=== PATIENT | male | born 1965 | race American Indian/Alaskan Native ===

== ENCOUNTER 2019-11-05 03:04 | Emergency (ER) | payer SELFPAY ==
[2019-11-05 07:26] VITALS: BP 122/88
--- NOTE | 2019-11-05 07:43 | Emergency Department Report ---
Chief Complaint: Extremity Injury, Lower Stated Complaint: FEET PAIN Time Seen by Provider: 11/05/19 07:30 - HPI History of Present Illness: 54-year-old -Prydeinig male presents to the emergency room for bilateral feet pain for several weeks. Patient reports that he was seen at another hospital and was prescribed gabapentin. Patient states today is progressively worse. Patient reports the pain is sharp and throbbing. Patient reports that in between his toes is cracked and moist and very tender. Patient denies any past medical history currently takes no medications on a daily basis and has no known drug allergies. - Exam Vital Signs: Vital Signs 11/05/19 11/05/19 03:08 07:26 Temperature 97.8 F Pulse Rate 88 82 Respiratory 18 18 Rate Blood Pressure 123/92 Blood Pressure 122/88 [Left] O2 Sat by Pulse 97 98 Oximetry Physical Exam: Alert and oriented x3 no acute distress. Patient was sleeping comfortable when entered his room. Feet non-edematous between toes is moist and hypopigmented. No cracks or wounds appreciated. MSE screening note: Focused history and physical exam performed. Due to findings the following was ordered: 54-year-old -Prydeinig male presents to the emergency room for bilateral feet pain for several weeks. Patient reports that he was seen at another hospital and was prescribed gabapentin. Patient states today is progressively worse. Patient reports the pain is sharp and throbbing. Patient reports that in between his toes is cracked and moist and very tender. Patient denies any pa st medical history currently takes no medications on a daily basis and has no known drug allergies. Recommend [place] foot soaks and opoh-zzm-rzsilbz Lotrisone. Patient can take Tylenol or ibuprofen as needed for pain management. Patient is to follow-up with a range aid. ED Disposition for MSE Disposition: Z-07 MED SCREENING EXAM-LEFT Is pt being admited?: No Does the pt Need Aspirin: No Condition: Stable Additional Instructions: Recommend over the counter [place] foot soaks and kfoc-piy-hzcfosc Lotrisone. Patient can take Tylenol or ibuprofen as needed for pain management. Patient is to follow-up with a range aid. Referrals: PRIMARY CARE, [Primary Care Provider] - 3-5 Days SIMEON CORDOVA DPM [Staff Physician] - 3-5 Days
== END 2019-11-05 07:59 | disposition left against medical advice (07) ==
LOC: ED 03:04
DX: M79.672 Pain in left foot (principal); M79.671 Pain in right foot
CPT/HCPCS: 99281